=== PATIENT | female | born 1945 | race Caucasian/White ===

== ENCOUNTER 2018-07-13 10:57 | Inpatient (IN) | payer MEDICARE, BC ==
--- NOTE | 2018-07-06 18:47 | HP ---
AMENDED REPORT NOW INCLUDES COSIGNER DESIGNATION PREOPERATIVE HISTORY AND PHYSICAL: DATE OF SURGERY/ADMISSION: 07/13/18 DATE OF OFFICE VISIT/ENCOUNTER: 07/02/18 ATTENDING SURGEON: Hollie Colorado MD * (DICTATED BY FRANCI PRECIADO) PROCEDURE: Left total knee arthroplasty. CHIEF COMPLAINT: Left knee pain. HISTORY OF PRESENT ILLNESS: Josefina Gonzales is a 72-year-old female with end- stage osteoarthritis of the left knee. She has failed conservative treatment and has elected to proceed with a left total knee arthroplasty, which is scheduled for 07/13/18. PAST MEDICAL HISTORY: 1. Hypothyroidism. 2. History of asthma. 3. Osteoarthritis. 4. Migraines, for which she takes propranolol prophylactically. PAST SURGICAL HISTORY: 1. Tonsillectomy and adenoidectomy. 2. Hernia repair. 3. Lumbar diskectomy in 1991 at level L5-S1. 4. Tooth extraction. CURRENT MEDICATIONS: 1. Escitalopram oxalate 10 mg daily. 2. Levothyroxine sodium 100 mcg daily. 3. Melatonin 1 mg 1 to 2 tabs q.h.s. p.r.n. 4. Meloxicam 15 mg daily. 5. Probiotic 1 tab daily. 6. Propranolol HCl ER 60 mg daily. 7. Soma 350 mg twice daily p.r.n. spasms pain. 8. Zomig 2.5 mg daily as needed. ALLERGIES: 1. SULFA DRUGS cause a rash. 2. CELSO INHIBITORS, reaction unknown. 3. AMOXICILLIN, reaction unknown. 4. AUGMENTIN, reaction unknown. 5. CEFTIN, reaction unknown. 6. TOPAMAX, reaction unknown. FAMILY MEDICAL HISTORY: Cancer, heart disease, hypertension, and stroke. SOCIAL HISTORY: The patient is retired registered nurse. She lives at home with her . She denies tobacco use and recreational drug use. She drinks alcohol on rare occasion. REVIEW OF SYSTEMS: A complete 14-point review of systems were reviewed with the patient and negative other than her current musculoskeletal complaint. She denies history of DVT, PE, hepatitis, HIV, MRSA, and anesthesia problems. PHYSICAL EXAMINATION GENERAL: Well-developed, well-nourished 72-year-old female, in no acute distress. VITAL SIGNS: Height 5 feet 2 inches, weight 162 pounds, pulse rate 74, blood pressure 110/60. HEENT: Normocephalic, atraumatic. Pupils were equal, round, and reactive to light and accommodation. Throat is clear. NECK: Supple. No palpable lymph nodes. PULMONARY: Lungs are clear to auscultation bilaterally. No wheezes, rales or rhonchi. CARDIOVASCULAR: Regular rate and rhythm. S1, S2. No murmurs, rubs or gallops. No edema. ABDOMEN: Positive bowel sounds. Soft, nontender. MUSCULOSKELETAL: Left lower extremity: Skin is intact. There are no open wounds or abrasions. She has a mild joint effusion. Tenderness to palpation over both the medial and lateral joint lines. Range of motion from 10 to 120 degrees of flexion. She has a varus alignment at the knee. No varus or valgus instability noted. Distally neurovascularly intact. NEUROLOGICAL: Alert and oriented x3. Cranial nerves II through XII are intact. Sensation is intact to light touch. IMAGING STUDIES: X-rays of the left knee show end-stage arthritis with medial bone- on-bone contact. There is medial and patellofemoral compartment joint space narrowing, osteophyte formation, and subchondral sclerosis. ASSESSMENT AND PLAN: Ms. Gonzales is a 72-year-old female with end-stage osteoarthritis of the left knee. She has failed conservative treatment and has elected to proceed with a left total knee arthroplasty and surgery is scheduled for 07/13/18. Dr. Colorado discussed the risks and benefits of surgery at today's visit and all of her questions were answered. She will follow up with Dr. Colorado 2 weeks after the surgery. FRANCI PRECIADO [id number]/[facility] #: [id number] MTDD
[~2018-07-13 10:57] MED LIST: Buffered Lidocaine 0.9% SYRIN* 5 ML/SYR SYRINGE INTRADERM ONE; Dexamethasone TAB* 4 MG PO ONE; DiMENhydriNATE IV* 50 MG/ML VIAL IV PUSH PRN; Famotidine IV* 10 MG/ML 2 ML (20 mg) IV ONE; Gabapentin CAP(*) 300 MG PO ONE; Lactated Ringers 1000 ML Bag* 1,000 ML IV SCH; Morphine VIAL* 4 MG/ML VIAL (1 ml vial) IV PRN; Naloxone* 0.4 MG/ML 1 ML VIAL IV PRN; Ondansetron TAB* 4 MG PO ONE; PROCHLORPERAZINE INJ 5 MG/ML 2 ML VIAL IV PRN; Scopolamine 1.5 mg* PATCH TRANSDERM PRN; Tranexamic Acid 1,000 MG in NS 0.9% 50 ML* (outpatient use) IV SCH; fentaNYL* 50 MCG/ML 2 ML VIAL (100 MCG VIAL) IV PRN; oxyCODONE/Acetamin 5/325 MG* TAB PO PRN
[2018-07-13] MEDS ORDERED: Gabapentin CAP(*) 300 MG ONE (11:44)
[2018-07-13] MEDS ORDERED: Ondansetron ODT TAB* 4 MG ONE (11:44)
[2018-07-13] MEDS ORDERED: Famotidine IV* 10 MG/ML 2 ML (20 mg) ONE (11:44)
[2018-07-13] MEDS ORDERED: Dexamethasone TAB* 4 MG ONE (11:45)
[2018-07-13] MEDS ORDERED: Clindamycin 900 MG/D5W BAG(*) 900 MG/50 ML BAG IVPB ONE (11:45)
[2018-07-13] MEDS ORDERED: Buffered Lidocaine 0.9% SYRIN* 5 ML/SYR SYRINGE ONE (11:45)
[2018-07-13] MEDS ORDERED: Bupivacaine 0.5% SDV PF* 30ML VIAL ONE ×2 (12:41→12:48)
[2018-07-13] MEDS ORDERED: Midazolam* 1 MG/ML 2 ML VIAL (2 MG) ONE (12:48)
[2018-07-13] MEDS ORDERED: Bupivacaine 0.25% SDV* 30 ML ONE (12:48)
[2018-07-13] MEDS ORDERED: Lidocaine 2% PF * 5 ML VIAL ONE (13:29)
[2018-07-13] MEDS ORDERED: Bupivacaine-MPF SPINAL* 7.5 MG/ML - 2ML AMP ONE (13:29)
[2018-07-13] MEDS ORDERED: Propofol* 10 MG/ML 20 ML BTL IV PUSH ONE ×2 (13:30→14:57)
[2018-07-13] MEDS ORDERED: fentaNYL* 50 MCG/ML 2 ML VIAL (100 MCG VIAL) IV PRN (15:25)
[2018-07-13] MEDS ORDERED: Naloxone* 0.4 MG/ML 1 ML VIAL IV PRN (15:25)
[2018-07-13] MEDS ORDERED: oxyCODONE TAB* 5 MG TAB PO PRN (15:45)
[2018-07-13] MEDS ORDERED: oxyCODONE/Acetamin 5/325 MG* TAB PO PRN (15:45)
[2018-07-13] MEDS ORDERED: Bisacodyl SUPP* 10 MG SUPP PR PRN (15:45)
[2018-07-13] MEDS ORDERED: diPHENhydraMINE IV* 50 MG/ML 1 ml VIAL (BENADRYL) IV PRN (15:45)
[2018-07-13] MEDS ORDERED: Morphine VIAL* 4 MG/ML VIAL (1 ml vial) IV PRN (15:45)
[2018-07-13] MEDS ORDERED: Cyclobenzaprine TAB* 10 MG PO PRN (15:45)
[2018-07-13] MEDS ORDERED: Magnesium Hydroxide LIQ* 30 ML UDC PO PRN (15:45)
[2018-07-13] MEDS ORDERED: Ondansetron INJ* 2 MG/ML VIAL IV PRN (15:45)
--- OUTSIDE RECORDS SUMMARY | 2018-07-13 17:22 | XMS REPORT ---
:1945 External Reference #:[id number] Author Organization [employer] Address [address] [place] [address] [place] [address] Phone [phone] Care Team Providers Name Role Phone Dileep Goff MD Primary Care Physician Unavailable Payers Type Date Identification Numbers Payment Provider Subscriber Medicare Primary Policy Number: [id number] Medicare Josefina Gonzales PayID: [id number] [address] [place] [address] [facility] Policy Number: [id number] [employer] Cristi Gonzales PayID: [id number] [address] [address] [place] [address] Problems Date Description Provider Status Onset: 03/01/2018 Localized, primary osteoarthritis Hollie Colorado M.D. Active Family History Date Family Member(s) Problem(s) Comments General Heart Disease General Hypertension General Stroke General Cancer Social History Type Date Description Comments Lives With Spouse Occupation Retired ETOH Use Rarely consumes alcohol Smoking Patient has never smoked Exercise Type/Frequency Exercises regularly Allergies, Adverse Reactions, Alerts Date Description Reaction Status Severity Comments 08/14/2016 Sulfa Antibiotics rash active 03/01/2018 Amoxicillin active 03/01/2018 Augmentin active 03/01/2018 Ceftin active 03/01/2018 Fawad Inhibitors active 03/01/2018 Topamax active Medications Medication Date Status Form Strength Qnty SIG Indications Ordering Provider Meloxicam 03/01/ Active Tablets 15mg 30tabs Take One M25.562 Hollie 2017 Tablet By Johnathon Colorado.DLatesha Every Day Maximum Daily Dose=1 Levothyroxine / Active Tablets 100mcg 1 by mouth Unknown Sodium 0000 every day Melatonin 00/00/ Active Tablets 1mg 1-2 Unknown 0000 tablets at at bedtime as needed Probiotic 00/00/ Active Capsules 1 by mouth Unknown 0000 every day Propranolol HCL 0000/ Active Caps ER 60mg 1 by mouth Unknown ER 0000 24HR every day Escitalopram 00/ Active Tablets 10mg Dileep Goff Oxalate 0000 Zomig 00/ Active Tablets 2.5mg 1 melted Unknown 0000 Dispers orally every day as needed, may repeat once in 2 hours as needed mdd2 Soma / Active Tablets 350mg take one Unknown 0000 capsule/ta blet by mouth twice daily as needed for spasms, pain Ascorbic Acid / Hx Tablets 500mg 1 by mouth Unknown 0000 - every day 2017 Calcium / Hx Tablets 600mg Unknown Carbonate 0000 - 2017 Carisoprodol / Hx Tablets 350mg 1 tab Unknown 0000 - tid/prn 2017 Triamcinolone / Hx Cream 0.5% every day Unknown Acetonide 0000 - as needed 2017 Zolmitriptan / Hx Tablets 2.5mg take one Unknown 0000 - tablet by 02/28/ mouth as 2018 needed for headache may repeat once in two hours Levothyroxine / Hx Tablets 100mcg Dileep Goff Sodium 0000 - 2017 Propranolol HCL / Hx Caps ER 60mg Dela Cruz, ER 0000 - 24HR Ric [employer] 2017 Medications Administered in Office Medication Date Status Form Strength Qnty SIG Indications Ordering Provider Depomedrol Administered Injection Hollie 40MG 018 Glenna Colorado Technetium TC Administered Injection Landry S. 99M 017 DO Mundo Tetrofosmin, FACC Per Unit Dose Up To 40 Millicuries Vital Signs Date Vital Result Comment 07/02/2018 Height 62 inches 5'2" Weight 162.50 lb Heart Rate 74 /min BP Systolic 110 mmHg BP Diastolic 60 mmHg Respiratory Rate 17 /min Pain Level 2 BMI (Body Mass Index) 29.7 kg/m2 06/04/2018 Height 62 inches 5'2" Weight 160.00 lb Heart Rate 76 /min Respiratory Rate 15 /min Pain Level 3 BMI (Body Mass Index) 29.3 kg/m2 03/22/2018 Height 62 inches 5'2" Weight 157.00 lb Heart Rate 72 /min BP Systolic 120 mmHg BP Diastolic 72 mmHg Respiratory Rate 12 /min Body Temperature 98.0 F Pain Level 1 BMI (Body Mass Index) 28.7 kg/m2 03/01/2018 Height 62 inches 5'2" Weight 159.00 lb Heart Rate 72 /min BP Systolic 134 mmHg BP Diastolic 80 mmHg BMI (Body Mass Index) 29.1 kg/m2 Results Description No Information Procedures Date CPT Code Description Status 03/01/2018 12352 Inject/Drain Joint/Bursa Major W/O US Completed 08/27/2016 69525 Stress Test Completed 08/27/2016 14317 Myocardial Perfusion Imaging Tomographic (Spect) Completed Multiple Studies Encounters Type Date Location Provider CPT E/M Dx Office Visit 06/04/2018 [facility] Hollie Colorado M.D. 35818 M25.562 9:[facility]a [facility] M25.462 M17.12 Office Visit 03/22/2018 9:15a [facility] M.D. 52681 M25.562 [facility] M25.462 M17.12 Office Visit 03/01/2018 10:30a [facility] Holl[facility] M.D. 22464 M25.562 [facility] M25.462 M17.12 Plan of Care Future Appointment(s):07/28/2018 9:45 am - Hollie Colorado M.D. at [facility]07/13/2018 1:30 pm - Mckinley Sim PA-C at [facility]07/13/2018 1:30 pm - FRANCI Castillo at [facility]07/13/2018 1:30 pm - Hollie Colorado M.D. at [facility]08/30/2018 11:00 am - Bijan Mock M.D. at [facility]07/02/2018 - Hollie Colorado M.D.M17.12 Unilateral primary osteoarthritis, left kneeFollow up:10-14 days postop
[2018-07-13] MEDS: Lactated Ringers 1000 ML Bag* 1,000 ML IV SCH (17:28)
[2018-07-13] MEDS ORDERED: Warfarin TAB(*) 6 MG PO ONE (18:00)
[2018-07-13] MEDS: oxyCODONE/Acetamin 5/325 MG* TAB PO PRN (19:31)
[2018-07-13] MEDS: Magnesium Hydroxide LIQ* 30 ML UDC PO SCH (21:26)
[2018-07-13] MEDS: Docusate CAP* 100 MG PO SCH (21:26)
[2018-07-13] MEDS: Clindamycin 600 MG IVPREMIX(* 600 MG/50 ML SDV IV SCH (21:27)
[2018-07-14] MEDS: Lactated Ringers 1000 ML Bag* 1,000 ML IV SCH (04:18)
[2018-07-14] MEDS: oxyCODONE/Acetamin 5/325 MG* TAB PO PRN (04:31)
[2018-07-14] MEDS: Clindamycin 600 MG IVPREMIX(* 600 MG/50 ML SDV IV SCH ×2 (05:49→14:19)
[2018-07-14] MEDS: Levothyroxine TAB* 100 MCG TAB PO SCH (05:51)
[2018-07-14 06:34] LABS: Hematocrit 36 % (35-47); Mean Platelet Volume 7.8 fL (7.4-10.4); Platelet Count 244 10^3/ul (150-450)
[2018-07-14 06:40] LABS: INR 1.23 (0.77-1.02)
[2018-07-14 06:49] LABS: BUN/Creatinine Ratio 25.7 (8-20); Calcium 8.7 mg/dL (8.6-10.3); EGFR Non-African American 77.1 (>60); Potassium 4.1 mmol/L (3.5-5.0)
--- NOTE | 2018-07-14 07:34 | PN ---
Progress Note - Progress Note Date of Service: 07/14/18 SOAP: Subjective: Pt. is alert, some confusion with pain meds. Objective: LLE - dressing c/d/i. distally +df/pf, full sens lt, 2+ dp pulse. Vital Signs: Temp Pulse Resp BP Pulse Ox 97.6 F 67 18 128/75 94 07/13/18 23:12 07/13/18 23:12 07/14/18 07:13 07/13/18 23:12 07/13/18 23:12 Laboratory Results - last 24 hr 07/14/18 07/14/18 07/14/18 06:06 06:06 06:06 Hgb 12.0 Hct 36 Plt Count 244 MPV 7.8 INR (Anticoag Therapy) 1.23 H Sodium 133 L Potassium 4.1 Chloride 103 Carbon Dioxide 26 Anion Gap 4 BUN 19 Creatinine 0.74 Est GFR ( Amer) 93.3 Est GFR (Non-Af Amer) 77.1 BUN/Creatinine Ratio 25.7 H Glucose 147 H Calcium 8.7 Assessment: 72 yo F pod 2 s/p LTKA Plan: wbat will try tramadol for pain - oxycodone causing confusion 6 mg coumadin tonight and lovenox pt/ot wbat lle
[2018-07-14] MEDS: traMADol TAB* 50 MG PO PRN ×3 (08:15→20:42)
[2018-07-14] MEDS: Acetaminophen TAB* 325 MG PO PRN ×2 (08:15→16:44)
[2018-07-14] MEDS: Docusate CAP* 100 MG PO SCH ×2 (09:04→20:42)
[2018-07-14] MEDS: Vitamin THERAPEUTIC TAB PO SCH (09:04)
[2018-07-14] MEDS: Propranolol LA CAP* 120 MG PO SCH (09:04)
[2018-07-14] MEDS: Magnesium Hydroxide LIQ* 30 ML UDC PO SCH ×2 (09:04→20:42)
[2018-07-14] MEDS: Enoxaparin(*) 40 MG/0.4 ML SYR SUBCUT SCH (12:39)
[2018-07-14] MEDS: Warfarin TAB(*) 6 MG PO SCH (16:45)
--- NOTE | 2018-07-14 21:21 | OP ---
OPERATIVE REPORT: DATE OF OPERATION: 07/13/18 DATE OF : [birth year] SURGEON: Hollie Colorado MD WAVE GUIDE ASSEMBLER: FRANCI Hopkins Ms. did help throughout the procedure with preparation of the knee, wound retraction, manipu lation of the knee, and wound closure. ANESTHESIOLOGIST: Dr. Valentin. ANESTHESIA: Spinal. PRE-OP DIAGNOSIS: Severe end-stage degenerative osteoarthritis of the left knee joint. POST-OP DIAGNOSIS: Severe end-stage degenerative osteoarthritis of the left knee joint. OPERATIVE PROCEDURE: Left total knee arthroplasty. INDICATIONS: Ms. Gonzales is a 72-year-old female with years of increasingly severe left knee pain. Her radiographs showed zsmu-le-kizb arthritis. She failed conservative treatment with antiinflammato aman, pain medication, intraarticular injections, and physical therapy. Due to continued pain and de creased quality of life, she elected to undergo left total knee arthroplasty. Radiographs showed bon e- on-bone arthritis. Informed consent was obtained from the patient. She understood the risks of s urgery included but were not limited to, bleeding, infection, damage to nearby structures, continued pain, need for further surgery, intraoperative fracture, nerve palsy, hardware failure or loosening, knee stiffness, loss of motion, stroke, heart attack, blood clot, and . She wished to proceed. TOURNIQUET TIME: 47 minutes. COMPLICATIONS: None. SPECIMENS: Bone and cartilage from the left knee joint sent to Pathology. HARDWARE USED: This is cemented [employer] total knee arthroplasty hardware. Two packages of S implex bone cement. For the femur, a left size 5 Narrow posterior stabilized Legion femoral componen t. For the tibia, a size 3 left Marta II tibial baseplate. For the insert, an 11-mm posterior sta bilized articular insert size 3-4 and for the patella, a 29-mm 3-peg all poly patella with 7.5 thickn ess. INTRAOPERATIVE FINDINGS: Intraoperatively, the patient was noted to have severe end-stage arthritis with complete loss of cartilage in all 3 compartments. There was extensive osteophyte formation arou nd the distal femur and patella. DESCRIPTION OF PROCEDURE: Ms. Gonzales was identified in the preanesthesia unit. Her left lower extre mity was marked as the correct operative side. Informed consent was signed and placed in the chart. The patient was taken to the operating room and placed under spinal anesthesia. A Hays catheter wa s placed. Tourniquet was placed on the left thigh. Left lower extremity was prepped and draped in t he usual sterile fashion. Preop time-out was made to correctly identify the patient's side and site. Appropriate perioperative antibiotics were given within 1 hour of incision. Tourniquet was inflated and total tourniquet time for this procedure was 47 minutes. A midline incis ion was made with a #10 blade and carried down to the extensor mechanism. New #10 blade was used to make a standard medial parapatellar arthrotomy. Patella was subluxed laterally. Electrocautery was used to subperiosteally elevate soft tissue off the superomedial tibia to the mid sagittal plane. Th e knee was flexed up. The anterior horn of the lateral meniscus and ACL were sharply released. A dr ill was used to enter the distal femur. Intramedullary distal femoral cutting guide was pinned on th e distal femur. Oscillating saw was used to make the distal femoral cut. Next, the external rotatio n guide was pinned on the distal femur. The distal femur was sized to a size 5. Size 5 multi-cuttin g jig was pinned on the distal femur. Oscillating saw was used to make the appropriate four chamfer cuts. Extramedullary tibial cutting guide was pinned on the proximal tibia. Oscillating saw was used to ma ke the proximal tibial cut perpendicular to the mechanical axis of the tibia. The tibial bone was ca refully removed. The knee was brought out into full extension. The spacer block had good fit with t he knee in full extension. Medial and lateral ligaments were well balanced. Flexion and extension g aps were well balanced. The knee was flexed up. A lamina grinder and honer operator automatic was placed both medially and late rally. Any remaining meniscus was removed using electrocautery. Curved osteotome was used to remove any posterior osteophytes. Tibial tray and drop charles were placed and once again confirmed a satisfact ory tibial cut. A left size 5 Narrow femoral trial was impacted on to the distal femur and had excellent fit and stab ility. The box for the posterior stabilized implant was prepared using a reamer and box cut osteotom e. Size 3 tibial tray trial with an 11- mm insert trial was placed and the knee taken through a rang e of motion. The knee had full extension to 130 degrees of flexion. There was satisfactory patellof emoral tracking. The patella was everted. 7 mm of bone and cartilage were carefully removed from th e patella using an oscillating saw. Patella was sized to a size 29. Three peg holes were drilled to a size 29 guide. A 29 trial patella with 7.5 thickness was placed and the knee was taken through a range of motion. There was satisfactory patellofemoral tracking. All trials were carefully removed. Tibia was subluxed anteriorly and sized to a size 3. Proximal ti taylor was prepared using a size 3 keel punch. All bony cut surfaces were copiously irrigated with ster ile saline and dried. Final implants were cemented into place starting with the tibia, followed by t he femur, and lastly the patella. An 11-mm insert trial was placed and the knee was brought out into full extension. Tourniquet was turned down at 47 minutes. Electrocautery was used to obtain meticu lous hemostasis. The knee was copiously irrigated with sterile saline. Once the cement had fully cu red, the insert trial was removed. Any excess cement was removed from around the capsule and hardwar e. Final insert chosen was an 11-mm posterior stabilized articular insert size 3-4. This was locked into position on the tibial tray. The stability of the insert was checked and rechecked and noted t o be stable. The knee was once again copiously irrigated with sterile saline. The extensor mechanism was closed u sing interrupted #1 Vicryls. The rest of the incision was closed in a layered fashion using 0 and 2- 0 Vicryls. The skin was closed using running 3-0 nylon suture. Sterile Xeroform, 4x4s, and Webril w ere used to cover the incision. Fawad wrap and cold pack were placed over this. The patient's anesthe jung was reversed without difficulty. She was taken to the PACU in stable condition. Intended weight bearing will be weightbearing as tolerated. Intended DVT prophylaxis will be Coumadin with a Lovenox bridge. [id number]/[facility] #: [id number]
[2018-07-15] MEDS: Levothyroxine TAB* 100 MCG TAB PO SCH (05:32)
[2018-07-15] MEDS: traMADol TAB* 50 MG PO PRN ×3 (05:32→17:54)
[2018-07-15 06:19] LABS: Hematocrit 34 % (35-47); Hemoglobin 11.5 g/dl (12.0-16.0); Mean Platelet Volume 7.9 fL (7.4-10.4); Platelet Count 234 10^3/ul (150-450)
[2018-07-15 06:25] LABS: INR 1.87 (0.77-1.02)
[2018-07-15] MEDS: Magnesium Hydroxide LIQ* 30 ML UDC PO SCH ×2 (08:11→20:21)
[2018-07-15] MEDS: Propranolol LA CAP* 120 MG PO SCH (08:12)
[2018-07-15] MEDS: Acetaminophen TAB* 325 MG PO PRN (08:12)
[2018-07-15] MEDS: Docusate CAP* 100 MG PO SCH ×2 (08:12→20:21)
[2018-07-15] MEDS: Vitamin THERAPEUTIC TAB PO SCH (08:12)
--- NOTE | 2018-07-15 11:13 | PN ---
Progress Note - Progress Note Date of Service: 07/15/18 SOAP: Subjective: Pt. is alert, some confusion although nursing reports slightly better than yesterday. Deneis nay numbness or tingling, chest pain, SOB. Objective: LLE - dressing c/d/i, Dressing changed today, incision is c/d/i, no drainage or erythema. distally +df/pf, full sens lt, 2+ dp pulse. Vital Signs Temp 97.5 F 07/15/18 07:17 Pulse 74 07/15/18 07:17 Resp 18 07/15/18 08:00 BP 124/60 07/15/18 07:17 Pulse Ox 92 07/15/18 08:00 Intake & Output 07/14/18 07/15/18 07/15/18 18:59 06:59 18:59 Intake Total 1727 710 Output Total 200 0 Balance 1527 710 Intake: IV Fluids 847 ABX - CLINDAMYCIN 110 LR 737 Oral 880 710 Output: Urine 200 0 Other: Estimated Void Small Medium # Voids 1 1 Assessment: 72 yo F pod 2 s/p LTKA Plan: wbat Continue with Tramadol for pain INR of 1.87 - 8 mg coumadin tonight and lovenox pt/ot wbat lle Possible D/C home tomorrow
[2018-07-15] MEDS: Enoxaparin(*) 40 MG/0.4 ML SYR SUBCUT SCH (11:58)
[2018-07-15] MEDS: Warfarin TAB(*) 6 MG PO SCH (17:56)
[2018-07-16] MEDS: Levothyroxine TAB* 100 MCG TAB PO SCH (05:27)
[2018-07-16 05:45] LABS: Hematocrit 35 % (35-47); Hemoglobin 11.5 g/dl (12.0-16.0); Mean Platelet Volume 8.4 fL (7.4-10.4); Platelet Count 242 10^3/ul (150-450)
[2018-07-16 05:50] LABS: INR 2.76 (0.77-1.02)
[2018-07-16] MEDS ORDERED: Scopolamine PATCH Remove* 1 NOTE MISC PATCH OFF ONE (05:53)
[2018-07-16] MEDS: Acetaminophen TAB* 325 MG PO PRN (09:35)
[2018-07-16] MEDS: Docusate CAP* 100 MG PO SCH (09:36)
[2018-07-16] MEDS: Magnesium Hydroxide LIQ* 30 ML UDC PO SCH (09:37)
[2018-07-16] MEDS: Propranolol LA CAP* 120 MG PO SCH (09:37)
[2018-07-16] MEDS: Vitamin THERAPEUTIC TAB PO SCH (09:38)
[2018-07-16 10:35] VITALS: BP 117/70
[2018-07-16] MEDS: traMADol TAB* 50 MG PO PRN (12:02)
[2018-07-16] MEDS: Enoxaparin(*) 40 MG/0.4 ML SYR SUBCUT SCH (12:31)
--- NOTE | 2018-07-16 21:32 | DS ---
DISCHARGE SUMMARY: DATE OF ADMISSION: 07/13/18 DATE OF DISCHARGE: 07/16/18 ATTENDING PHYSICIAN: Dr. Hollie Colorado.* (DICTATED BY FRANCI ROBBINS) ADMISSION DIAGNOSIS: Severe end-stage degenerative osteoarthritis, left knee. DISCHARGE DIAGNOSIS: Severe end-stage osteoarthritis, left knee. SURGERY PERFORMED: Left total knee arthroplasty. HOSPITAL COURSE: The patient is a 72-year-old female with increasingly severe left knee pain. Her x-rays revealed loaq-mb-dlrs arthritis. She failed conservative management with antiinflammatories, pain medication, and intraarticular cortisone injections as well as physical therapy. Due to her continued pain and decreased quality of life, she elected to proceed with left total knee arthroplasty. She was taken to the operating room under the care of Dr. Hollie Colorado on the date of 07/13/18. She tolerated the procedure and left the operating room in stable condition. Postoperatively, she progressed satisfactorily with the physical therapy and occupational therapy goals, bearing weight as tolerated on the left lower extremity. She has had some recent difficulties with some mild forgetfulness/onset of dementia. She did have an episode of some mild confusion which seems to be worse in the night, according to her . It was felt that she would stay until 07/16/18. The patient feels comfortable, she is managing well with her pain taking tramadol and feels ready for discharge home today. CONDITION ON DISCHARGE: She is afebrile. Her vital signs are stable. Her left knee incision is healing without evidence of infection. Her calf is soft and nontender. She has full active dorsiflexion and plantar flexion of left ankle. Her circulation and sensation are intact. PLAN: The patient will be discharged to home with [facility] services. She will go home on tramadol 50 mg p.o. q.6 hours p.r.n. pain, #28, zero refills. She is provided with prescription for Coumadin tablets 2 mg, #90, 1 to 3 tablets daily as directed. Her INR on discharge is 2.76. She will not take any Coumadin today , 07/16/18. She will take 2 mg of Coumadin on 07/17/18 and 2 mg Coumadin on 07/18/18 with repeat [facility] lab draw on 07/19/18. We recommend to follow up in the office with Dr. Colorado as scheduled in roughly 10 to 14 days. FRANCI ROBBINS [id number]/[facility] #: [id number] MTDAlina
== END 2018-07-16 12:50 | disposition home health service (06) | DRG 470 ==
LOC: SSU 17:17
PROVIDERS: ADMIT Orthopaedic Surgery Adult Reconstructive Orthopaedic Surgery; ATTEND Orthopaedic Surgery Adult Reconstructive Orthopaedic Surgery
PROC: 0SRD0J9 Replacement of Left Knee Joint with Synthetic Substitute, Cemented, Open Approach (ICD-10-PCS; principal; 2018-07-13 13:30)
DX: M17.12 Unilateral primary osteoarthritis, left knee (principal); F03.90 Unspecified dementia, unspecified severity, without behavioral disturbance, psychotic disturbance, mood disturbance, and anxiety; R41.0 Disorientation, unspecified; E03.9 Hypothyroidism, unspecified; J45.909 Unspecified asthma, uncomplicated; G43.909 Migraine, unspecified, not intractable, without status migrainosus; M25.462 Effusion, left knee; K58.9 Irritable bowel syndrome, unspecified; M85.80 Other specified disorders of bone density and structure, unspecified site; T40.2X5A Adverse effect of other opioids, initial encounter; Y92.239 Unspecified place in hospital as the place of occurrence of the external cause; H90.3 Sensorineural hearing loss, bilateral; I10 Essential (primary) hypertension; M25.762 Osteophyte, left knee; Z88.2 Allergy status to sulfonamides; Z88.8 Allergy status to other drugs, medicaments and biological substances; Z88.1 Allergy status to other antibiotic agents; Z88.0 Allergy status to penicillin; Z82.49 Family history of ischemic heart disease and other diseases of the circulatory system; Z82.3 Family history of stroke; Z80.0 Family history of malignant neoplasm of digestive organs; Z80.7 Family history of other malignant neoplasms of lymphoid, hematopoietic and related tissues; Z82.62 Family history of osteoporosis; Z72.89 Other problems related to lifestyle
CPT/HCPCS: 36415; 80048; 84300; 85014; 85018; 85049; 85610; 88305; 88311; A9270-GY; C1776; G8978-GP-CJ; G8979-GP-CI; J1650; J2250; J2270; J2704; J8540

== ENCOUNTER → 2019-06-21 10:22 | Day surgery (SDC) | payer MEDICARE, BC ==
[~2019-06-21 10:22] MED LIST changes: -Buffered Lidocaine 0.9% SYRIN* 5 ML/SYR SYRINGE INTRADERM ONE; +Buffered Lidocaine 1% SYRIN* 1 ML/SYRINGE INTRADERM ONE; +Cyclopentolate 1% OPTH.SOL* 2 ML BTL ONE; -Dexamethasone TAB* 4 MG PO ONE; -DiMENhydriNATE IV* 50 MG/ML VIAL IV PUSH PRN; -Famotidine IV* 10 MG/ML 2 ML (20 mg) IV ONE; -Gabapentin CAP(*) 300 MG PO ONE; +Ketorolac 0.5% OPHTH (NF) 0.5 % 5 ML BTL ONE; -Lactated Ringers 1000 ML Bag* 1,000 ML IV SCH; +Lidocaine 1% MPF ** 5 ML VIAL ONE; +Midazolam* 1 MG/ML 2 ML VIAL (2 MG) ONE; -Morphine VIAL* 4 MG/ML VIAL (1 ml vial) IV PRN; -Naloxone* 0.4 MG/ML 1 ML VIAL IV PRN; +Neomycin/Polymy/Dex OPHTH.OIN* 3.5 GM ONE; -Ondansetron TAB* 4 MG PO ONE; -PROCHLORPERAZINE INJ 5 MG/ML 2 ML VIAL IV PRN; +Phenylephrine OPHTH SOL 2.5%* 2 ML ONE; -Scopolamine 1.5 mg* PATCH TRANSDERM PRN; +Tetracaine 0.5% OPTH.SOL 4 ML* 1 DROP BTL ONE; -Tranexamic Acid 1,000 MG in NS 0.9% 50 ML* (outpatient use) IV SCH; +Tropicamide 1% OPTH.SOL* BTL ONE; -fentaNYL* 50 MCG/ML 2 ML VIAL (100 MCG VIAL) IV PRN; -oxyCODONE/Acetamin 5/325 MG* TAB PO PRN
[2019-06-21 14:01] VITALS: BP 106/77
--- NOTE | 2019-06-21 14:57 | OP ---
DATE OF OPERATION/DATE OF DICTATION: 06/21/2019 - [facility] DATE OF : 1945. SURGEON: Dr. Antonio Schreiber. CHART CALCULATOR: None. ANESTHESIA: Topical with intravenous sedation. PRE-OP DIAGNOSIS: Cataract, left eye. POST-OP DIAGNOSIS: Cataract, left eye. OPERATIVE PROCEDURE: Phacoemulsification and cataract extraction with posterior chamber intraocular lens implant, left eye. COMPLICATIONS: None. BLOOD LOSS: None. DESCRIPTION OF PROCEDURE: The patient was brought to the operating room and received a small amount of intravenous sedation. A drop of Tetracaine was placed in her left eye. She was prepped and draped in the usual sterile fashion for ophthalmic surgery and attention was directed to the left eye where a speculum was placed. A paracentesis was created at the 5 o'clock position and 0.1 cc of 1 percent preservative-free Lidocaine was injected into the anterior chamber followed by DisCoVisc. The eye was digitally stabilized while a 2.75 mm keratome was used to create a triplanar clear corneal incision at the 3 o'clock position. A continuous curvilinear capsulorrhexis was created with a cystotome and Utrata forceps. BSS on a cannula was used to hydrodissect the lens from the capsule. Phacoemulsification was performed in a divide-and- conquer technique to create four fragments which were removed. Residual cortical material was removed with irrigation and aspiration. DisCoVisc was used to inflate the capsular bag and an AUOOTO 19.0 diopter lens was folded and inserted into the capsular bag. DisCoVisc was removed using irrigation and aspiration. BSS on a cannula was used to hydrate the corneal stroma and seal the wound. At the end of the case the pupil was round and the lens was centered. The eye was of normal pressure and the wound was water tight. The speculum was removed and topical Maxitrol ointment was placed on the surface of the eye. The eye was closed, patched and shielded and the patient was sent to the recovery room in stable condition with post operative instructions and follow-up appointment given. [id number]/[facility] #: [id number] MTDD
== END | disposition home or self-care (01) ==
LOC: OREAST 10:22
PROVIDERS: ATTEND Ophthalmology
DX: H25.12 Age-related nuclear cataract, left eye (principal); E03.9 Hypothyroidism, unspecified; M81.0 Age-related osteoporosis without current pathological fracture; G47.33 Obstructive sleep apnea (adult) (pediatric); K58.9 Irritable bowel syndrome, unspecified; Z96.652 Presence of left artificial knee joint; Z88.1 Allergy status to other antibiotic agents; Z88.2 Allergy status to sulfonamides; Z88.8 Allergy status to other drugs, medicaments and biological substances
CPT/HCPCS: A9270-GY; J2250; V2632

== ENCOUNTER → 2019-06-28 13:45 | Day surgery (SDC) | payer MEDICARE, BC ==
[~2019-06-28 13:45] MED LIST changes: +fentaNYL* 50 MCG/ML 2 ML VIAL (100 MCG VIAL) ONE
[2019-06-28 17:36] VITALS: BP 137/74
--- NOTE | 2019-06-28 21:55 | OP ---
DATE OF OPERATION: 06/28/[address] [facility] DATE OF : 45 SURGEON: Dr. Antonio Schreiber. PRINT BUYER: None. ANESTHESIA: Topical with intravenous sedation. PRE-OP DIAGNOSIS: Cataract, right eye. POST-OP DIAGNOSIS: Cataract, right eye. OPERATIVE PROCEDURE: Phacoemulsification and cataract extraction with posterior chamber intraocular lens implant, right eye. COMPLICATIONS: None. BLOOD LOSS: None. DESCRIPTION OF PROCEDURE: The patient was brought to the operating room and received a small amount of intravenous sedation. A drop of Tetracaine was placed in her right eye. She was prepped and draped in the usual sterile fashion for ophthalmic surgery and attention was directed to the right eye where a speculum was placed. A paracentesis was created at the 5 o'clock position and 0.1 cc of 1 percent preservative-free Lidocaine was injected into the anterior chamber followed by DisCoVisc. The eye was digitally stabilized while a 2.75 mm keratome was used to create a triplanar clear corneal incision at the 3 o'clock position. A continuous curvilinear capsulorrhexis was created with a cystotome and Utrata forceps. BSS on a cannula was used to hydrodissect the lens from the capsule. Phacoemulsification was performed in a divide-and- conquer technique to create four fragments which were removed. Residual cortical material was removed with irrigation and aspiration. DisCoVisc was used to inflate the capsular bag and an AU00TO 19.0 diopter lens was folded and inserted into the capsular bag. DisCoVisc was removed using irrigation and aspiration. BSS on a cannula was used to hydrate the corneal stroma and seal the wound. At the end of the case the pupil was round and the lens was centered. The eye was of normal pressure and the wound was water tight. The speculum was removed and topical Maxitrol ointment was placed on the surface of the eye. The eye was closed, patched and shielded and the patient was sent to the recovery room in stable condition with post operative instructions and follow-up appointment given. [id number]/[facility] #: [id number] MTDD
== END | disposition home or self-care (01) ==
LOC: OREAST 13:45
PROVIDERS: ATTEND Ophthalmology
DX: H25.11 Age-related nuclear cataract, right eye (principal); E03.9 Hypothyroidism, unspecified; M81.0 Age-related osteoporosis without current pathological fracture; J30.2 Other seasonal allergic rhinitis; Z88.1 Allergy status to other antibiotic agents; G47.33 Obstructive sleep apnea (adult) (pediatric); F03.90 Unspecified dementia, unspecified severity, without behavioral disturbance, psychotic disturbance, mood disturbance, and anxiety
CPT/HCPCS: A9270-GY; J2250; J3010; V2632